=== PATIENT | male | born 1990 | race Two or more races ===

== ENCOUNTER 2017-09-09 16:33 | Emergency (ER) | payer OTHER ==
[~2017-09-09] VITALS: Ht 167.6 cm; Wt 89.8 kg
--- NOTE | 2017-09-09 17:40 | PHYS DOC ---
Past History Past Medical History: No Pertinent History Adult General Chief Complaint Chief Complaint: FINGER INJURY HPI HPI 27-year-old right-handed incarcerated male patient states he injured his right middle finger with having a laceration while playing volleyball and tried to catch a ball. Patient denies focal neuro deficit and other injuries. Patient is not up-to-date with tetanus immunization. Review of Systems Review of Systems Constitutional: Denies fever or chills [] Eyes: Denies change in visual acuity, redness, or eye pain [] HENT: Denies nasal congestion or sore throat [] Respiratory: Denies cough or shortness of breath [] Cardiovascular: No additional information not addressed in HPI [] GI: Denies abdominal pain, nausea, vomiting, bloody stools or diarrhea [] : Denies dysuria or hematuria [] Musculoskeletal: Denies back pain or joint pain [] Integument: Denies rash or skin lesions [] Neurologic: Denies headache, focal weakness or sensory changes [] Endocrine: Denies polyuria or polydipsia [] All other systems were reviewed and found to be within normal limits, except as documented in this note. Current Medications Current Medications Current Medications Medications (Trade) Dose Ordered Sig/Anatoliy Start Time Stop Time Status Last Admin Dose Admin Diphtheria/ Tetanus/Acell Pertussis (Boostrix) 0.5 ml ONCE ONCE 09/09/17 17:30 09/09/17 17:31 UNV Allergies Allergies Allergies Coded Allergies Type Severity Reaction Last Updated Verified No Known Drug Allergies 09/09/17 No Physical Exam Physical Exam Constitutional: Well developed, well nourished, no acute distress, non-toxic appearance. [] HENT: Normocephalic, atraumatic Eyes: PERRLA, EOMI, conjunctiva normal, no discharge. [] Neck: Normal range of motion, no tenderness, supple, no stridor. [] Cardiovascular:Heart rate regular rhythm, no murmur [] Lungs & Thorax: Bilateral breath sounds clear to auscultation [] Extremities: No tenderness, no cyanosis, no clubbing, ROM intact, no edema, 1 cm superficial laceration on dorsal side of PIP joint of right middle finger without active bleeding or tendon injury. [] Neurologic: Alert and oriented X 3, normal motor function, normal sensory function, no focal deficits noted. [] Psychologic: Affect normal, judgement normal, mood normal. [] EKG EKG [] Radiology/Procedures Radiology/Procedures [] Course & Med Decision Making Course & Med Decision Making Evaluation of patient in ER showed 27-year-old female patient with right middle finger laceration that was treated with Dermabond and placement of splint. Dragon Disclaimer Dragon Disclaimer This electronic medical record was generated, in whole or in part, using a voice recognition dictation system. Laceration Repair Lac Repair Indication: [] Right middle finger laceration Procedure: The patient was placed in the appropriate position and 1 cm superficial laceration of dorsal side of right middle finger was repaired with Dermabond and Steri-Strip and a splint was placed. Total repaired wound length: [1 centimeter]. Other Items: [OTHER ITEMS] The patient tolerated the procedure [well]. Complications: none. Departure Departure: Impression: Primary Impression: Laceration of middle finger Condition: RELEASED IN CUSTODY (At 1739) Referrals: PCP,NO (PCP) Patient Instructions: Tissue Adhesive Wound Care Additional Instructions: keep wound clean and dry PALAK FAJARDO MD September 09, 2017 17:40
[2017-09-09 17:45] VITALS: BP 118/79
[2017-09-09] MEDS ORDERED: DIPHTH,PERTUSS(ACELL),TET TOX 0.5 ML DISP.SYRIN. VAX IM ONE (17:45)
== END 2017-09-09 17:50 | disposition home or self-care (01) ==
LOC: EEVIPCON 16:33 → ER 16:33
DX: S61.212A Laceration without foreign body of right middle finger without damage to nail, initial encounter (principal); W21.06XA Struck by volleyball, initial encounter; Y93.68 Activity, volleyball (beach) (court); Y99.8 Other external cause status; Y92.89 Other specified places as the place of occurrence of the external cause
CPT/HCPCS: 12001; 90471; 90715; 99283-25